=== PATIENT | female | born 1950 | race Caucasian/White ===

== ENCOUNTER 2018-02-19 13:26 | Emergency (ER) | payer OTHER ==
[~2018-02-19] VITALS: Ht 162.6 cm; Wt 67.1 kg
[~2018-02-19 13:26] MED LIST: ASPIRIN EC325 M2 PO; ATORVASTATIN CA20 M1 PO; BACTRIM DS TAB1 EACH PO; FENOFIBRATE145 M1 PO; KEFLEX500 M1 PO; LOSARTAN-HCTZ1 EACH PO; METOPROLOL SUCC50 M2 PO; VITAMIN B-121000 MC3 PO; VITAMIN D31000 UNI2 PO
[2018-02-19 13:57] LABS: ABSOLUTE BASOPHIL COUNT 0.1 /CUMM (0.0-0.2); ABSOLUTE EOSINOPHIL COUNT 0.1 /CUMM (0.0-0.7); ABSOLUTE GRANULOCYTE CT 7.9 /CUMM (1.4-6.5); ABSOLUTE LYMPH COUNT 3.6 /CUMM (1.2-3.4); ABSOLUTE MONOCYTE COUNT 0.7 /CUMM (0.10-0.60); BASOPHIL % 0.8 % (0.0-2.0); EOSINOPHIL % 0.8 % (0-5); GRANULOCYTE % 63.5 % (42.2-75.2); HEMATOCRIT 38.1 % (37-47); MEAN CORPUSCULAR HGB CONC 34.6 G/DL (33.0-37.0); MEAN CORPUSCULAR VOLUME 89.7 FL (81.0-99.0); MEAN PLATELET VOLUME 8.1 FL (7.4-10.4); PLATELET COUNT 517 /CUMM (130-400); RBC DISTRIBUTION WIDTH 13.3 % (11.5-14.5); RED BLOOD CELL CT 4.24 /CUMM (4.20-5.40); WHITE BLOOD CELL COUNT 12.4 /CUMM (4.8-10.8)
--- NOTE | 2018-02-19 15:42 | ED GENERAL ADULT ---
History of Present Illness General Chief Complaint: Neuro Symptoms/ Deficit Stated Complaint: TINGLING TO LEFT HAND, AND LEFT SIDE OF FACE Source: patient Exam Limitations: no limitations Vital Signs & Intake/Output Vital Signs & Intake/Output Vital Signs Date Time Temp Pulse Resp B/P B/P Pulse O2 O2 Flow FiO2 Mean Ox Delivery Rate 02/19 1835 80 168/80 02/19 1800 98.1 81 14 171/77 97 Room Air 02/19 1445 Room Air 02/19 1330 98.0 111 16 182/78 98 Room Air Allergies Coded Allergies: NO KNOWN ALLERGIES (10/03/12) Reconcile Medications Aspirin (Ecotrin*) 325 MG TABLET.DR 1 TAB PO DAILY HEART HEALTH (Reported) Atorvastatin Calcium 20 MG TABLET 1 TAB PO DAILY CHOLESTEROL (Reported) Cephalexin (Keflex) 500 MG CAPSULE 1 CAP PO BID ABSCESS Cholecalciferol (Vitamin D3) 1,000 UNIT TABLET 1 TAB PO DAILY BONES (Reported ) Cyanocobalamin (Vitamin B-12) 1,000 MCG TABLET 1 TAB PO DAILY VITAMIN SUPPORT (Reported) Fenofibrate Nanocrystallized (Fenofibrate) 145 MG TABLET 1 TAB PO DAILY CHOLESTEROL (Reported) Losartan/Hydrochlorothiazide (Losartan-Hctz 100-12.5 MG Tab) 100 MG-12.5 MG TABLET 1 TAB PO DAILY HEART (Reported) Metoprolol Succinate 50 MG TAB.ER.24H 1 TAB PO DAILY HEART (Reported) Sulfamethoxazole/Trimethoprim (Bactrim Ds Tablet) 800 MG-160 MG TABLET 1 TAB PO BID ABSCESS Triage Note: 67 Y/O FEMALE C/O L SIDED LIP TINGLING AND "NUMBNESS" FROM L WRIST INTO FINGERS, SYMPTOMS ONSET SUNDAY AND INTERMITTENT SINCE. HAD MRI OUTPATIENT. SPEAKING CLEARLY WITH NO DEFICITS NOTED. MARK BY MIKE OSCAR IN TRIAGE TAKEN FOR LABS AND EKG Triage Nurses Notes Reviewed? yes Onset: Abrupt Duration: day(s): Timing: recent history HPI: 02/19/18 4 PM 67-year-old female presents to the emergency department complaining of left- sided weakness and facial numbness. She says that over the past several days she's having episodes of left sided facial numbness and paresthesias in the left arm. She had a recent MRI of her brain that was negative according to her. Today she was blow drying her hair and had a second episode of left sided facial paresthesias, and now developed weakness to the left arm where she dropped a blow dryer. She denies any chest pain shortness of breath or other complaints. All of her symptoms have since resolved. Past History Travel History Traveled to [place] past 21 day No Medical History Any Pertinent Medical History? see below for history Neurological: NONE EENT: NONE Cardiovascular: hypertension, hyperlipidemia Respiratory: NONE Gastrointestinal: NONE Hepatic: NONE Renal: NONE Musculoskeletal: NONE Psychiatric: NONE Endocrine: diabetes Blood Disorders: NONE Cancer(s): NONE Tetanus Vaccine: 01/25/13 Surgical History Surgical History: non-contributory Psychosocial History What is your primary language Ma[place] Tobacco Use: Current Daily Use Daily Tobacco Use Amount/Type: => 5 Cigarettes daily Family History Hx Contributory? No Review of Systems Review of Systems Constitutional: Denies: fever. EENTM: Denies: visual changes. Respiratory: Denies: short of breath. Cardiovascular: Denies: chest pain. GI: Denies: abdominal pain. Genitourinary: Reports: no symptoms. Musculoskeletal: Reports: see HPI. Skin: Denies: rash. Neurological/Psychological: Reports: see HPI. Hematologic/Endocrine: Reports: no symptoms. Immunologic/Allergic: Reports: no symptoms. Physical Exam Physical Exam General Appearance: well developed/nourished, alert, awake, anxious, moderate distress Head: atraumatic, normal appearance Eyes: Bilateral: normal appearance, PERRL, EOMI. Ears, Nose, Throat: normal pharynx, normal ENT inspection Neck: normal inspection, supple, full range of motion Respiratory: normal breath sounds, chest non-tender, no respiratory distress Cardiovascular: regular rate/rhythm Gastrointestinal: soft, non-tender Back: normal range of motion Extremities: no edema Neurologic/Psych: no motor/sensory deficits, awake, alert, oriented x 3, normal gait Skin: intact, normal color, warm/dry Core Measures ACS in differential dx? No CVA/TIA Diagnosis: No Sepsis Present: No Sepsis Focused Exam Completed? No Progress Differential Diagnoses I considered the following diagnoses in my evaluation of the patient: [CVA. TIA, cervical radiculopathy, peripheral vascular disease,] Plan of Care: Orders Procedure Date/time Status TROPONIN LEVEL 02/19 1331 Complete COMPREHENSIVE METABOLIC PANEL 02/19 1331 Complete CBC WITHOUT DIFFERENTIAL 02/19 133 Complete EKG 02/19 1331 Active Laboratory Tests 02/19/18 1340: Anion Gap 11, Estimated GFR > 60, BUN/Creatinine Ratio 25.6 H, Glucose 127 H, Calcium 10.2, Total Bilirubin 0.5, AST 27, ALT 24, Alkaline Phosphatase 66, Troponin I < 0.01, Total Protein 7.7, Albumin 4.3, Globulin 3.4, Albumin/ Globulin Ratio 1.3, CBC w Diff NO MAN DIFF REQ, RBC 4.24, MCV 89.7, MCH 31.0, MCHC 34.6, RDW 13.3, MPV 8.1, Gran % 63.5, Lymphocytes % 29.1, Monocytes % 5.8, Eosinophils % 0.8, Basophils % 0.8, Absolute Granulocytes 7.9 H, Absolute Lymphocytes 3.6 H, Absolute Monocytes 0.7 H, Absolute Eosinophils 0.1, Absolute Basophils 0.1 Initial ED EKG: NSR, nonspecific ST T wave chg Prior EKG: unchanged Departure Departure Disposition: STILL A PATIENT Condition: Stable Clinical Impression Primary Impression: Weakness Referrals: Radha DAVIS,Marlen (PCP/Family) Departure Forms: Customer Survey General Discharge Information Comments 02/19/18 6:14 PM The patient has no neurological findings at this time. CT the head is unremarkable. Labs are unremarkable. EKG reveals normal sinus rhythm unchanged from prior. She recently had a negative MRI of her brain. She is currently on a Statin and aspirin. She has diabetes, high blood pressure and high cholesterol. She is also continuing to smoke. I spoke with the on-call neurologist Dr. Heath and we are in agreement with the plan. We'll increase her statin, continue aspirin, strongly urged not to smoke. She will follow-up with him as an outpatient and return immediately should symptoms recur. , IMPRESSION: CT scan of the head: No acute intracranial pathology. Findings of ischemic small vessel disease in the periventricular deep white matter again noted. CT scan of the cervical spine: No evidence of cervical spine fracture or posttraumatic malalignment. Mild subluxation at C2-3 is most likely on a degenerative basis. Clinical correlation requested. Multilevel degenerative changes in the spine as discussed above. DICTATED BY: Willie DAVIS,Lexi Hudson DATE/TIME DICTATED:02/19/181642 BILINGUAL CUSTOMER SERVICE SPECIALIST:SHERI DATE/TIME TRANSCRIBED:02/19/181642 CONFIDENTIAL, DO NOT COPY WITHOUT APPROPRIATE AUTHORIZATION. <Electronically signed in Other Vendor System> SIGNED BY: Lexi Tapai MD [id number] Critical Care Note Critical Care Note Critical Care Time: 30-74 min
--- NOTE | 2018-02-19 17:04 | CT SCAN REPORT ---
EXAMINATION: CT OF THE HEAD WITHOUT CONTRAST CT OF THE CERVICAL SPINE WITHOUT CONTRAST CLINICAL INFORMATION: Left-sided weakness. Rule out CVA. Left-sided weakness. Rule out cervical radiculopathy. COMPARISON: MRI scan of the head dated 02/15/2018. PET CT scan dated 12/23/2006. TECHNIQUE: Contiguous axial imaging was performed from the skullbase to vertex without intravenous administration of contrast. Coronal reformations of the head were obtained. Contiguous axial imaging was then performed from the skull base down to the thoracic inlet. Coronal and sagittal reformations of the cervical spine were obtained. DLP: 849.69 mGy-cm. FINDINGS: CT scan of the head: There is no evidence of acute intracranial hemorrhage or territorial infarction. No abnormal mass-effect or midline shift is seen. Price to white matter differentiation is well preserved. No extra-axial fluid collections are identified. The ventricles are normal in size. Mild periventricular deep white matter low-attenuation is seen, similar to the previous MRI scan, consistent with ischemic small vessel disease. Calcifications of the vertebrobasilar arteries and the carotid siphons are noted. The patient is status post bilateral lens extractions. The osseous structures and soft tissues are normal. The mastoid air cells and visualized portions of the paranasal sinuses are well-aerated. CT scan of the cervical spine: There is minimal grade 1 anterolistheses of C2 on C3 and slight straightening of the cervical spine, possibly related to patient positioning or mild degenerative changes. No evidence of acute fracture or dislocation. Craniocervical junction and atlantoaxial articulations are intact. Moderate degenerative changes seen at the atlantoaxial articulation with prominent spur formation noted. Prevertebral soft tissues are normal in thickness. There is moderate degenerative disc disease at C5-6 with disc space narrowing, vertebral endplate sclerosis and spurring, including a small posterior disc osteophyte complex, which projects into the spinal canal and indents the thecal sac, causing mild spinal stenosis. Moderate vertebral spondylosis along the anterior margin of C4-5 is also seen with relative preservation of the disc space height. Mild disc space narrowing and spurring is seen at C6-7. Moderate facet arthropathy is seen at the left C2-3 facet joint. Nodular enlargement of the posterior lower right lobe of the thyroid gland is seen. The included soft tissues of the neck are otherwise unremarkable. Mild paraseptal emphysematous changes as seen in the lung apices bilaterally. IMPRESSION: CT scan of the head: No acute intracranial pathology. Findings of ischemic small vessel disease in the periventricular deep white matter again noted. CT scan of the cervical spine: No evidence of cervical spine fracture or posttraumatic malalignment. Mild subluxation at C2-3 is most likely on a degenerative basis. Clinical correlation requested. Multilevel degenerative changes in the spine as discussed above.
[2018-02-19 18:35] VITALS: BP 168/80
== END 2018-02-19 18:39 ==
LOC: ERH 13:26
PROVIDERS: Physician Assistant Medical
DX: R53.1 Weakness (principal); R20.0 Anesthesia of skin; I10 Essential (primary) hypertension; E11.9 Type 2 diabetes mellitus without complications; F17.210 Nicotine dependence, cigarettes, uncomplicated; Z79.82 Long term (current) use of aspirin
CPT/HCPCS: 93005; 93010